=== PATIENT | female | born 1985 | race Caucasian/White ===

== ENCOUNTER 2021-11-23 08:51 | Emergency (ER) | payer BC, SELFPAY ==
[2021-11-23 09:00] VITALS: BP 153/94; PULSE 79; RESP 16; TEMP 36.9; O2SAT 99
--- NOTE | 2021-11-23 09:23 | ED.URI ---
HPI - URI/Sore Throat General Stated Complaint: cough runny nose Time Seen by Provider: 11/23/21 09:25 Source: patient Mode of arrival: ambulatory Limitations: no limitations History of Present Illness HPI Narrative: Patient presents with a 4-week history of nasal congestion sinus pressure and cough. No shortness of breath and no chest pain. Patient is taking Advil sinus and congestion for her symptoms. Patient denies any high fever. Patient is a normally healthy individual. Patient had some Amoxil leftover from a previous illness that she took she took Amoxil 500 mg twice daily for 4 days she took this 3 weeks ago and states she did feel better after that. MD elicited complaint: cough and sinus pain Related Data Home Medications Medication Instructions Recorded Confirmed escitalopram oxalate 5 mg PO DAILY 11/23/21 11/23/21 Allergies Allergy/AdvReac Type Severity Reaction Status Date / Time azithromycin Allergy Unknown ABDOMINAL Verified 11/23/21 09:39 PAIN fluticasone AdvReac Unknown disorientat Verified 11/23/21 09:39 ion Penicillins AdvReac Unknown Nausea Verified 11/23/21 09:39 Review of Systems Review of Systems: CONSTITUTIONAL: Denies chills, or sweats. Reports fever and generalized body aches EYES: Denies visual changes, redness, or discharge. ENT: Denies otalgia. Reports nasal congestion runny nose and sore throat mild maxillary sinus pressure CARDIOVASCULAR: Denies chest pain, palpitations, or edema. RESPIRATORY: Denies dyspnea. Reports occasional cough GASTROINTESTINAL: Denies abdominal pain, nausea, vomiting, or diarrhea. GENITOURINARY: Denies dysuria or hematuria. SKIN: Denies rash or itching. MUSCULOSKELETAL: Denies back pain, joint pain, or myalgia. Reports generalized body aches NEUROLOGIC: Denies headache, numbness, or weakness. PSYCHIATRIC: Denies anxiety or depression. PMFSH Comments At time of signature, agree with nursing past medical, surgical, social and family history. There is no relevant family history pertinent to the presenting complaint Exam Narrative: The patient is a well-developed, well-nourished in no acute distress. SKIN: Skin is warm and dry without erythema, swelling or exudate. There is good turgor. No tenting. HEAD: Atraumatic. Normocephalic. No temporal or scalp tenderness. EYES: Moist and bright. Sclera and conjunctivae normal. No discharge. PERRLA. Extraocular motions intact. Gross visual acuity intact. EARS: Pinna is normal shape and contour. Clear external auditory canals. TM pearly ware with good cone of light, no erythema or suppuration. Bilateral cerumen noted no gross hearing deficit. NOSE: pink, moist mucosa with good air movement. Clear rhinorrhea without nasal flaring. Septum midline. Mild maxillary sinus pressure and tenderness Mouth: moist mucous membranes. THROAT; mild erythema noted to posterior oropharynx with moderate postnasal drainage. Without exudate or ulceration.. Uvula midline. Normal movement of soft palate. NECK: Supple and nontender with full range of motion without discomfort. No meningeal signs. LUNGS: Equal and bilateral breath sounds without wheezes, rales or rhonchi. CHEST: The chest wall is without retractions or use of accessory muscles. HEART: Has a regular rate and rhythm without murmur, gallops, click or rub. ABDOMEN: Soft, nontender with positive active bowel sounds. No rebound tenderness. EXTREMITIES: Without cyanosis, clubbing or edema. Equal 2+ distal pulses and 2 second capillary refill noted. NEUROLOGIC: alert, active, . The patient moves all extremities with normal muscle strength. Normal muscle tone is noted. Normal coordination is noted. NO focal neurological findings noted. Course Course Level of Care: Express Care Visit Vital Signs Vital signs: Vital Signs Temperature 36.9 C 11/23/21 09:00 Pulse Rate 79 11/23/21 09:00 Respiratory Rate 16 11/23/21 09:00 Blood Pressure 153/94 H 11/23/21 09:00 Pulse Oximetry
== END 2021-11-23 09:51 | disposition home or self-care (01) ==
PROVIDERS: Emergency Provider Nurse Practitioner Family; PCP Internal Medicine
DX: J32.9 Chronic sinusitis, unspecified (principal)
CPT/HCPCS: 99203; G0463